=== PATIENT | female | born 1975 | race Caucasian/White ===

== ENCOUNTER → 2019-12-30 08:56 | Outpatient (BNVA) | payer OTHER, SELFPAY | PROVIDERS: Family Provider Family Medicine; PCP Family Medicine; Visit Provider Anesthesiology | DX: M51.36 Other intervertebral disc degeneration, lumbar region (principal); M51.16 Intervertebral disc disorders with radiculopathy, lumbar region; M79.652 Pain in left thigh; F17.210 Nicotine dependence, cigarettes, uncomplicated; Z79.891 Long term (current) use of opiate analgesic | CPT/HCPCS: 99214 ==

== ENCOUNTER → 2020-02-25 08:33 | Outpatient (BNVA) | payer OTHER, SELFPAY | PROVIDERS: Family Provider Family Medicine; PCP Family Medicine; Visit Provider Anesthesiology | DX: M51.16 Intervertebral disc disorders with radiculopathy, lumbar region (principal); M51.36 Other intervertebral disc degeneration, lumbar region; F17.210 Nicotine dependence, cigarettes, uncomplicated; Z71.6 Tobacco abuse counseling; Z79.891 Long term (current) use of opiate analgesic | CPT/HCPCS: 99214 ==

== ENCOUNTER → 2020-04-20 09:08 | Outpatient (BNVA) | payer OTHER, SELFPAY | PROVIDERS: Family Provider Family Medicine; PCP Family Medicine; Visit Provider Anesthesiology | DX: M51.36 Other intervertebral disc degeneration, lumbar region (principal); M51.16 Intervertebral disc disorders with radiculopathy, lumbar region; M54.9 Dorsalgia, unspecified; F17.210 Nicotine dependence, cigarettes, uncomplicated; Z79.891 Long term (current) use of opiate analgesic | CPT/HCPCS: 62323; 99212; 99213; J1040; J2001; J3490 ==

== ENCOUNTER → 2020-06-22 08:03 | Outpatient (BNVA) | payer OTHER, SELFPAY | PROVIDERS: Family Provider Family Medicine; PCP Family Medicine; Visit Provider Anesthesiology | DX: M51.16 Intervertebral disc disorders with radiculopathy, lumbar region (principal); M51.36 Other intervertebral disc degeneration, lumbar region; M54.9 Dorsalgia, unspecified; F17.210 Nicotine dependence, cigarettes, uncomplicated; Z79.891 Long term (current) use of opiate analgesic; Z71.6 Tobacco abuse counseling | CPT/HCPCS: 99214 ==

== ENCOUNTER → 2020-08-31 07:58 | Outpatient (BNVA) | payer OTHER, SELFPAY | PROVIDERS: Family Provider Family Medicine; PCP Family Medicine; Visit Provider Anesthesiology | DX: M51.16 Intervertebral disc disorders with radiculopathy, lumbar region (principal); M51.36 Other intervertebral disc degeneration, lumbar region; M54.9 Dorsalgia, unspecified; F17.210 Nicotine dependence, cigarettes, uncomplicated; Z79.891 Long term (current) use of opiate analgesic | CPT/HCPCS: 99213; 99214 ==

== ENCOUNTER → 2020-10-19 09:39 | Outpatient (BNVA) | payer OTHER, SELFPAY | PROVIDERS: Family Provider Family Medicine; PCP Family Medicine; Visit Provider Anesthesiology | DX: M51.16 Intervertebral disc disorders with radiculopathy, lumbar region (principal); M51.36 Other intervertebral disc degeneration, lumbar region; M54.9 Dorsalgia, unspecified; F17.210 Nicotine dependence, cigarettes, uncomplicated; Z79.891 Long term (current) use of opiate analgesic | CPT/HCPCS: 99212; 99214 ==

== ENCOUNTER → 2020-12-07 08:02 | Outpatient (BNVA) | payer BC, SELFPAY | PROVIDERS: Family Provider Family Medicine; PCP Family Medicine; Visit Provider Anesthesiology | DX: G89.29 Other chronic pain (principal); M51.16 Intervertebral disc disorders with radiculopathy, lumbar region; M51.36 Other intervertebral disc degeneration, lumbar region; M54.9 Dorsalgia, unspecified; F17.210 Nicotine dependence, cigarettes, uncomplicated | CPT/HCPCS: 62323; J1040; J3490 ==

== ENCOUNTER → 2020-12-29 08:05 | Outpatient (BNVA) | payer BC, SELFPAY | PROVIDERS: Family Provider Family Medicine; PCP Family Medicine; Visit Provider Anesthesiology | DX: M51.16 Intervertebral disc disorders with radiculopathy, lumbar region (principal); M54.9 Dorsalgia, unspecified; M51.36 Other intervertebral disc degeneration, lumbar region; F17.210 Nicotine dependence, cigarettes, uncomplicated; Z79.891 Long term (current) use of opiate analgesic | CPT/HCPCS: 99213 ==

== ENCOUNTER → 2021-02-23 08:46 | Outpatient (BNVA) | payer BC, SELFPAY | PROVIDERS: Family Provider Family Medicine; PCP Family Medicine; Visit Provider Anesthesiology | DX: M51.16 Intervertebral disc disorders with radiculopathy, lumbar region (principal); M51.36 Other intervertebral disc degeneration, lumbar region; M54.9 Dorsalgia, unspecified; F17.210 Nicotine dependence, cigarettes, uncomplicated; Z79.891 Long term (current) use of opiate analgesic | CPT/HCPCS: 99213 ==

== ENCOUNTER 2021-05-21 12:04 | Outpatient (CLI) | payer BC, SELFPAY ==
--- NOTE | 2021-05-21 12:12 | XRR_ITS ---
PROCEDURE INFORMATION: Exam: XR Lumbosacral Spine Exam date and time: 05/21/2021 12:12 PM Age: 45 years old Clinical indication: Low back pain; Additional info: Low back pain, please comment on presence or absence of spinal instability TECHNIQUE: Imaging protocol: XR of the lumbosacral spine. Views: 2 or 3 views. COMPARISON: MRI Lumbar Spine w/o [id number] 12/21/2018 11:05 AM FINDINGS: Bones/joints: Degenerative change. Anatomic alignment. No instability. Soft tissues: Unremarkable. XR/XR lumbar spine f/e only [id number] IMPRESSION: Degenerative change.
== END 2021-05-21 12:05 | disposition home or self-care (01) ==
PROVIDERS: PCP Family Medicine; Visit Provider Nurse Practitioner
DX: M54.5 Low back pain (principal)
CPT/HCPCS: 72120

== ENCOUNTER 2023-02-11 15:10 | Emergency (ER) | payer SELFPAY ==
[2023-02-11 15:18] VITALS: BP 162/73; PULSE 84; RESP 16; TEMP 36.5; O2SAT 98
[2023-02-11 16:59] VITALS: BP 177/88; PULSE 91; RESP 16; O2SAT 100
--- NOTE | 2023-02-11 16:59 | XRR_ITS ---
PROCEDURE INFORMATION: Exam: XR Left Ankle Exam date and time: 02/11/2023 5:15 PM Age: 47 years old Clinical indication: Pain; Left; Patient HX: Prev old injury to lt ankle TECHNIQUE: Imaging protocol: Radiologic exam of the left ankle. Views: 3 or more views. COMPARISON: No relevant prior studies available. FINDINGS: Bones/joints: Negative for acute bone abnormality. There is a bone exostosis present in the distal lateral shaft of the tibia measuring 19.8 mm x 8 mm. This is a chronic benign finding Soft tissues: Normal. XR/XR ankle LT min 3V* [id number] IMPRESSION: 1. No acute bone abnormality. 2. Benign exostosis distal lateral shaft of the tibia.
--- NOTE | 2023-02-11 17:22 | ED_ITS ---
HPI - Extremity Problem General: Chief complaint: Extremity Problem,Nontraumatic Stated complaint: Left leg, Swelling, Hurting Time Seen by Provider: 02/11/23 16:50 Source: patient Mode of arrival: ambulatory History of Present Illness: 47-year-old female presents emergency room complaining of pain in the left lateral malleolus extending proximally. Began suddenly while she was standing. Pain radiates proximally. It is tender to touch she denies chest pain or shortness of breath no history of DVTs. MD Complaint: extremity pain Onset (ago): hour(s) Location: left Quality: sharp Radiation: proximal Relieving factors: immobilization Exacerbating factors: range of motion, weight bearing and palpation Associated symptoms: Deny arthralgias, chest pain, fever(s), myalgias, rash, short of breath or other Review of Systems Const: Denies: fever(s) or chills ENMT: Denies: throat pain, ear or mastoid pain, nasal discharge or nasal congestion Card: Denies: chest pain Resp: Denies: dyspnea, productive cough or non-productive cough GI: Denies: abdominal pain, nausea, vomiting, hematemesis, coffee ground emesis, diarrhea, constipation, bloating, hematochezia or melena : Denies: flank pain, difficulty voiding, dysuria, urinary frequency or urinary urgency Skin/Breast: Denies: rash PFSH ED PFSH: Medical History Degenerative disc disease, lumbar Encounter for long-term opiate analgesic use Hypoestrogenism Lumbar disc herniation with radiculopathy Tobacco abuse disorder Surgical History H/O tubal ligation History of cholecystectomy History of hysterectomy Family History Other CAD (coronary artery disease) Cancer Social History Smoking and tobacco status: current every day smoker cigarettes Packs smoked per day: 1 Alcohol intake: never Physical Exam Const: GENERAL APPEARANCE: cooperative and comfortable ORIENTATION/CONSCIOUSNESS: Yes awake, Yes oriented to person, Yes oriented to place and Yes oriented to time HENMT: COMMON NORMALS: normocephalic, atraumatic and hearing grossly normal bilaterally HEAD & SCALP: normocephalic and atraumatic Resp: COMMON NORMALS: normal respiratory effort, No retractions, No use of accessory muscles and clear to auscultation bilaterally AUSCULTATION: clear to auscultation bilaterally Cardio: COMMON NORMALS: regular rate, regular rhythm and No murmurs present (Cardio) RATE: regular rate RHYTHM: regular rhythm GI: COMMON NORMALS: Soft to palpation and No hepatosplenomegaly present AUSCULTATION: Yes normoactive bowel sounds PALPATION: Yes Soft to palpation, No Tenderness to palpation present (GI), No Guarding due to palpation present (GI) and Yes No hepatosplenomegaly present Extremity: COMMON NORMALS: normal to inspection, capillary refill normal, no clubbing, cyanosis or edema, no calf tenderness and no pedal edema OTHER: Range of motion normal mild felt pain with palpation along the lateral malleolus especially posteriorly no significant swelling no edema no ecchymosis no deformity Homans negative no soft tissue swelling or induration Neuro: SENSORIUM/ORIENTATION: Yes oriented to person, Yes oriented to place and Yes oriented to time Skin: COMMON NORMALS: no rashes or lesions noted GENERAL SKIN EXAM: no rashes or lesions noted Course Vital Signs: Vital signs: Vital Signs Temperature 97.7 F 02/11/23 15:18 Pulse Rate 91 02/11/23 16:59 Respiratory Rate 16 02/11/23 16:59 Blood Pressure 177/88 02/11/23 16:59 Pulse Oximetry 100 02/11/23 16:59 Oxygen Delivery Me thod 02/11/23 16:59 MDM - Extremity (Nontraumatic) Medical Decision Making Exam is unremarkable. Negative Homans pain is over the posterior aspect lateral malleolus. X-ray is negative. No's significant swelling. No ecchymosis no deformity suspect soft tissue injury ligamentous or tendon. Anti-inflammatories ice as needed return if is worsening problems. Medical Records I reviewed the patient's medical records. Lab Data I reviewed the patient's lab results. Radiology Impressions Ankle X-Ray 02/11/23 16:59 IMPRESSION: 1. No acute bone abnormality. 2. Benign exostosis distal lateral shaft of the tibia. Discharge Plan Discharge Patient Disposition: Home Clinical Impression: Acute ankle pain Condition: Stable Prescriptions: New diclofenac sodium 75 mg tablet,delayed release (DR/EC) 75 mg PO Q12H PRN (Reason: pain) Qty: 20 0RF No Action methylprednisolone acetate [Depo-Medrol] 80 mg/mL suspension 80 mg IM ONCE Qty: 1 0RF estradiol 1 mg tablet 1 mg PO DAILY 21 Days Qty: 90 1RF azithromycin 250 mg tablet See Rx Instructions PO .COMPLEX Qty: 6 0RF Rx Instructions: take 500 mg today (day 1), then 250 mg for 4 days (days 2-5) PO alprazolam 0.5 mg tablet 0.5 mg PO BID PRN (Reason: anxiety) Qty: 60 4RF oxycodone 10 mg tablet 10 mg PO DAILY PRN (Reason: pain) 15 Days Qty: 15 0RF Rx Instructions: Intended #15 as no appt made Discharge Orders: Discharge ED (Routine); Ordered 02/11/23 Ordered By: Taj Rodas Referrals: Nathaniel Howell MD [Primary Care Provider] - Discharge Diet: Usual diet Discharge Activity: Increase activity as tolerated Patient Instructions: Opioid Safety, Pain Management Activity Restrictions/Additional Instructions: You were seen today for ankle pain. X-ray of ankle was unremarkable. Suspect muscle or ligament strain. There is no evidence of blood clot on exam. Recommend diclofenac 1 every 12 hours as needed. Coding Level of Care Code ED Learning And Development Intern for Mika Arizmendi
[2023-02-11] MEDS: ketorolac 30 mg/mL INJ 60 MG IM (18:10)
== END 2023-02-11 18:25 | disposition home or self-care (01) ==
PROVIDERS: Emergency Provider Family Medicine; PCP Family Medicine
DX: M25.572 Pain in left ankle and joints of left foot (principal); M89.9 Disorder of bone, unspecified; F17.210 Nicotine dependence, cigarettes, uncomplicated
CPT/HCPCS: 73610; 96372; 99284; J1885

== ENCOUNTER 2023-02-14 17:24 | Emergency (ER) | payer SELFPAY ==
[2023-02-14 17:41] VITALS: BMI 24.0
--- NOTE | 2023-02-14 17:52 | W.ED.DENTAL ---
HPI - Dental/Oral General: Chief complaint: Dental/Oral Stated complaint: abcess tooth Time Seen by Provider: 02/14/23 17:52 History of Present Illness: 47-year-old female comes in today for complaints of right upper jaw pain and facial swelling. Patient reports waking this morning with a swelling and discomfort. Patient has a premolar that is decayed and has been infected before in the past. Patient appears nontoxic. Patient appears in no acute distress. Associated symptoms: Denies fever(s) Review of Systems Const: Denies: fever(s) ENMT: Reports: dental pain; Denies: throat pain Resp: Denies: dyspnea GI: Denies: abdominal pain : Denies: difficulty voiding Skin/Breast: Denies: rash Neuro: Denies: headache(s) PFSH ED PFSH: Medical History Degenerative disc disease, lumbar Encounter for long-term opiate analgesic use Hypoestrogenism Lumbar disc herniation with radiculopathy Tobacco abuse disorder Surgical History H/O tubal ligation History of cholecystectomy History of hysterectomy Family History Other CAD (coronary artery disease) Cancer Social History Smoking and tobacco status: current every day smoker cigarettes Packs smoked per day: 1 Alcohol intake: never Physical Exam Const: COMMON NORMALS: alert HENMT: FACE & SINUS: edema (Right facial cheek, no redness) TEETH & GINGIVA: Yes caries (Decayed upper right premolar with surrounding tissue redness and swelling) and Yes fair dentition THROAT: posterior oropharynx normal Neck/C-Spine: COMMON NORMALS: full ROM Resp: COMMON NORMALS: normal respiratory effort Cardio: COMMON NORMALS: regular rate and regular rhythm RATE: regular rate RHYTHM: regular rhythm Back/Pelvis: COMMON NORMALS: thoracic and lumbar spine normal to inspection Extremity: COMMON NORMALS: no pedal edema Neuro: SENSORIUM/ORIENTATION: Yes alert Skin: COMMON NORMALS: turgor normal GENERAL SKIN EXAM: turgor normal MDM - Dental/Oral Medical Decision Making 47-year-old female comes in today with complaints of right upper dental pain. On exam patient has right facial swelling with no redness. Examination of the teeth noted several dental caries, some erythema and gingival swelling to a area of the right premolar. Posterior pharynx is normal. Lungs are clear to auscultation. Pupils are equal and reactive. Differential diagnosis includes not limited to dental pain, dental abscess, dental caries. No signs of severe injury or illness is noted. Patient be treated for a dental abscess with antibiotics and pain medicine. Patient was recommended to follow-up with dentist for definitive care. Discharge Plan Discharge Patient Disposition: Home Clinical Impression: Dental abscess Condition: Stable Prescriptions: New hydrocodone-acetaminophen 5-325 mg tablet 1 tab PO Q6H PRN (Reason: pain (scale score 7-10)) Qty: 7 0RF amoxicillin-pot clavulanate 875-125 mg tablet 1 tab PO BID Qty: 14 0RF No Action methylprednisolone acetate [Depo-Medrol] 80 mg/mL suspension 80 mg IM ONCE Qty: 1 0RF estradiol 1 mg tablet 1 mg PO DAILY 21 Days Qty: 90 1RF azithromycin 250 mg tablet See Rx Instructions PO .COMPLEX Qty: 6 0RF Rx Instructions: take 500 mg today (day 1), then 250 mg for 4 days (days 2-5) PO alprazolam 0.5 mg tablet 0.5 mg PO BID PRN (Reason: anxiety) Qty: 60 4RF oxycodone 10 mg tablet 10 mg PO DAILY PRN (Reason: pain) 15 Days Qty: 15 0RF Rx Instructions: Intended #15 as no appt made diclofenac sodium 75 mg tablet,delayed release (DR/EC) 75 mg PO Q12H PRN (Reason: pain) Qty: 20 0RF Discharge Orders: Discharge ED (Routine); Ordered 02/14/23 Ordered By: Emery Jj Referrals: Nathaniel Howell MD [Primary Care Provider] - Discharge Diet: Usual diet Discharge Activity: Increase activity as tolerated Patient Instructions: Dental Abscess (ED), Opioid Safety Activity Restrictions/Additional Instructions: Drink plenty of water with medication. Use antibiotic 1 tablet twice a day for the next 7 days. Use acetaminophen and ibuprofen to control pain. Use ice and heat for further pain relief. Use hydrocodone for severe pain. Follow-up with primary care for further instruction. Return to ED for new concerns. Coding Level of Care Code ED Oxygen Tank Filler for Mika Arizmendi
[2023-02-14] MEDS: amoxicillin-clav 875-125 mg Tablet 1 TAB PO (18:21)
[2023-02-14] MEDS: ketorolac 30 mg/mL INJ IM (18:21)
[2023-02-14] MEDS: HYDROcodone-acetaminophen 7.5-325 mg Tablet 1 TAB PO (18:21)
[2023-02-14] MEDS: ondansetron 4 MG Tablet PO (18:21)
== END 2023-02-14 18:26 | disposition home or self-care (01) ==
PROVIDERS: Emergency Provider Nurse Practitioner Family; PCP Family Medicine
DX: K04.7 Periapical abscess without sinus (principal); F17.210 Nicotine dependence, cigarettes, uncomplicated
CPT/HCPCS: 96372; 99284; J1885; Q0162

== ENCOUNTER 2023-10-08 14:19 | Emergency (ER) | payer BC, MEDICAID, SELFPAY ==
[2023-10-08 14:20] VITALS: BP 129/66; PULSE 94; RESP 17; TEMP 36.8; O2SAT 98; BMI 29.8
--- NOTE | 2023-10-08 15:28 | W.ED.SKABFB ---
HPI - Skin/Abscess/Foreign Bdy General: Chief complaint: Skin/Abscess/Foreign Body Stated complaint: spider bite Time Seen by Provider: 10/08/23 15:24 Source: patient Mode of arrival: ambulatory Limitations: no limitations History of Present Illness: 48-year-old female states that she did notice an abscess to her left buttocks 4 to 5 days ago states she had some increased swelling erythema and pain. Rates pain a 5 out of 10 she denies any fevers denies any worsening proving factors Associated symptoms: Deny chills, fever(s), nausea or vomiting Review of Systems Const: Denies: fever(s), chills, body aches or change in appetite ENMT: Denies: throat pain or dental pain Card: Denies: chest pain Resp: Denies: dyspnea GI: Denies: abdominal pain, nausea, vomiting or diarrhea : Denies: dysuria Musc: Denies: neck pain or back pain Skin/Breast: Denies: rash Neuro: Denies: headache(s) PFSH ED PFSH: Medical History Degenerative disc disease, lumbar Encounter for long-term opiate analgesic use Hypoestrogenism Lumbar disc herniation with radiculopathy Tobacco abuse disorder Surgical History H/O tubal ligation History of cholecystectomy History of hysterectomy Family History Other CAD (coronary artery disease) Cancer Social History Smoking and tobacco/nicotine status: current every day tobacco/nicotine user cigarettes Packs smoked per day: 1 Alcohol intake: never Substance/Drug Use: never Physical Exam Const: COMMON NORMALS: no acute distress and patient oriented x3 HENMT: COMMON NORMALS: normocephalic and atraumatic HEAD & SCALP: normocephalic and atraumatic Eye: COMMON NORMALS: conjunctivae normal CONJUNCTIVA: Yes conjunctivae normal Chest: COMMONS NORMALS: normal inspection of the chest Resp: COMMON NORMALS: normal respiratory effort GI: INSPECTION: Yes normal to inspection Back/Pelvis: OTHER: Abscess noted to left buttocks with surrounding erythema Extremity: COMMON NORMALS: normal to inspection Neuro: COMMON NORMALS: patient oriented x3 Psych: COMMON NORMALS: mental status grossly normal Skin: COMMON NORMALS: no rashes or lesions noted GENERAL SKIN EXAM: no rashes or lesions noted Procedures Abscess I/D Site: other (buttocks) Side (if applicable): left Local Anesthetic: lidocaine 1% Amount of anesthesia used (mL): 10 Technique: incised with #11 blade Packing used?: none Course Vital Signs: Vital signs: Vital Signs Temperature 98.3 F 10/08/23 14:20 Pulse Rate 94 10/08/23 14:20 Respiratory Rate 17 10/08/23 14:20 Blood Pressure 129/66 10/08/23 14:20 Pulse Oximetry 98 10/08/23 14:20 Oxygen Delivery Me thod Room Air 10/08/23 14:20 MDM - Skin/Abscess/Foreign Bdy Medicial Decision Making Patient presents with abscess to left buttocks abscess was incised and drained we will place on Bactrim patient stable for discharge she is to follow-up with PCP and return if worsening. Medical Records I reviewed the patient's medical records. No radiology studies performed this visit Discharge Plan Discharge Patient Disposition: Home Clinical Impression: Abscess of skin or subcutaneous tissue Condition: Stable Prescriptions: New Bactrim DS 800-160 mg tablet 1 tab PO BID 10 Days Qty: 20 0RF Naprosyn 500 mg tablet 500 mg PO BID PRN (Reason: pain) Qty: 20 0RF No Action methylprednisolone acetate [Depo-Medrol] 80 mg/mL suspension 80 mg IM ONCE Qty: 1 0RF estradiol 1 mg tablet 1 mg PO DAILY 21 Days Qty: 90 1RF azithromycin 250 mg tablet See Rx Instructions PO .COMPLEX Qty: 6 0RF Rx Instructions: take 500 mg today (day 1), then 250 mg for 4 days (days 2-5) PO alprazolam 0.5 mg tablet 0.5 mg PO BID PRN (Reason: anxiety) Qty: 60 4RF oxycodone 10 mg tablet 10 mg PO DAILY PRN (Reason: pain) 15 Days Qty: 15 0RF Rx Instructions: Intended #15 as no appt made diclofenac sodium 75 mg tablet,delayed release (DR/EC) 75 mg PO Q12H PRN (Reason: pain) Qty: 20 0RF hydrocodone-acetaminophen 5-325 mg tablet 1 tab PO Q6H PRN (Reason: pain (scale score 7-10)) Qty: 7 0RF amoxicillin-pot clavulanate 875-125 mg tablet 1 tab PO BID Qty: 14 0RF Discharge Orders: Discharge ED (Routine); Ordered 10/08/23 Ordered By: Dave Morillo Referrals: Nathaniel Howell MD [Primary Care Provider] - 1-3 days Discharge Diet: Advance as tolerated Discharge Activity: Resume usual activity Patient Instructions: Abscess (ED) Coding Level of Care Code ED Agricultural Plow Operator for Mika Arizmendi
[2023-10-08] MEDS: sulfamethoxazole-trimeth DS 160-800 mg Tablet 1 TAB PO (15:44)
[2023-10-08] MEDS: HYDROcodone-acetaminophen 5-325 mg Tablet 1 TAB PO (15:44)
== END 2023-10-08 15:51 | disposition home or self-care (01) ==
PROVIDERS: Emergency Provider Emergency Medicine; PCP Family Medicine
DX: L02.31 Cutaneous abscess of buttock (principal); F17.210 Nicotine dependence, cigarettes, uncomplicated
CPT/HCPCS: 10060; 99283

== ENCOUNTER 2024-04-02 00:46 | Emergency (ER) | payer BC, MEDICAID, SELFPAY ==
[2024-04-02 00:49] VITALS: BP 206/100; PULSE 82; RESP 18; TEMP 36.8; O2SAT 99; BMI 29.2
[2024-04-02 01:05] LABS: Basophils # 0.1 10^3/uL (0.0-0.1); Basophils % 0.7 %; Eosinophils # 0.2 10^3/uL (0.0-0.8); Eosinophils % 1.9 %; Hematocrit 43.2 % (36-47); Lymphocytes # 3.5 10^3/uL (0.8-4.8); Lymphocytes % 35.6 %; Mean Corpuscular HGB Conc 33.6 g/dL (30-55); Mean Corpuscular Hemoglobin 30.5 pg (27-33); Mean Corpuscular Volume 90.9 fl (85-98); Mean Platelet Volume 10.5 fL (7.4-10.4); Monocytes # 0.8 10^3/uL (0.2-0.9); Monocytes % 8.1 %; Neutrophils # 5.28 10^3/uL (1.8-7.7); Neutrophils % 53.5 %; Nucleated Red Blood Cells % 0 %; Platelet Count 237 10^3/cmm (157-399); Red Blood Count 4.75 10^6/uL (3.85-5.65); Red Cell Distribution Width 11.7 % (12.1-15.1); White Blood Count 9.88 10^3/uL (3.29-11.43)
--- NOTE | 2024-04-02 01:18 | ED_ITS ---
HPI - Abdominal Pain 2 General: Chief Complaint: Abdominal Pain Stated Complaint: Abd Pain Time Seen by Provider: 04/02/24 00:50 History of Present Illness: Patient presents to the snf with deputy at bedside with complaints of right lower quadrant pain that began 1 hour prior to arrival. Patient stated become dull and achy at first and then becomes sharp and stabbing. Patient is never had pain like this before. Patient denies any nausea vomiting diarrhea coughs colds fevers chills Review of Systems 2 General: Reports: 10 or more systems reviewed and unremarkable except in HPI and below PFSH ED 2 PFSH: Medical History Hypoestrogenism Encounter for long-term opiate analgesic use Tobacco abuse disorder Lumbar disc herniation with radiculopathy Degenerative disc disease, lumbar Surgical History History of hysterectomy History of cholecystectomy H/O tubal ligation Family History Other CAD (coronary artery disease) Cancer Social History Smoking and tobacco/nicotine status: current every day tobacco/nicotine user cigarettes Packs smoked per day: 1 Alcohol intake: never Substance/Drug Use: never Physical Exam 2 Const: COMMON NORMALS: no acute distress, average body habitus, patient oriented x3, no limitations, healthy appearing, alert and well nourished HENMT: COMMON NORMALS: normocephalic, atraumatic, hearing grossly normal bilaterally, external ears normal, Normal external nose present, moist oral mucous membranes and oropharynx normal HEAD & SCALP: normocephalic and atraumatic NOSE: Normal external nose present EXTERNAL EAR: Yes external ears normal Neck/C-Spine: COMMON NORMALS: no JVD Chest: COMMONS NORMALS: normal inspection of the chest and normal palpation of entire chest wall Resp: COMMON NORMALS: normal respiratory effort, No retractions, No use of accessory muscles and clear to auscultation bilaterally AUSCULTATION: clear to auscultation bilaterally Cardio: COMMON NORMALS: no JVD, regular rate, regular rhythm, S1 normal heart sound present, S2 normal heart sound present, No gallops present (Cardio), No clicks present (Cardio), No murmurs present (Cardio) and No rub (Cardio) R ATE: regular rate RHYTHM: regular rhythm HEART SOUNDS: S1 normal heart sound present and S2 normal heart sound present GI: COMMON NORMALS: Normal to inspection, nondistended, normoactive bowel sounds present, Soft to palpation, No hepatosplenomegaly present and no masses; negative for non-tender (Mildly tender to palpate right lower quadrant) P ALPATION: Yes Soft to palpation and Yes No hepatosplenomegaly present Neuro: COMMON NORMALS: patient oriented x3 SENSORIUM/ORIENTATION: Yes alert Course 2 Vital Signs: Vital signs: Vital Signs Temperature 98.2 F 04/02/24 00:49 Pulse Rate 82 04/02/24 00:49 Respiratory Rate 18 04/02/24 00:49 Blood Pressure 206/100 04/02/24 00:49 Pulse Oximetry 99 04/02/24 00:49 Oxygen Delivery Me thod Room Air 04/02/24 00:49 MDM - Abdominal Pain Medical Decision Making Your lab work was unremarkable. This included CBC CMP urinalysis and lipase. Will be discharged back to the snf to follow-up with the snf physician within the next 7 days. Differential Diagnosis Likely abdominal pain; Unlikely calculus of kidney, constipation, diverticulitis, endometriosis, gastroenteritis, pancreatitis or small bowel obstruction Medical Records I reviewed the patient's medical records. Lab Data I reviewed the patient's lab results. 04/02/24 01:00 04/02/24 01:00 Labs/Radiology: Laboratory Results WBC 9.88 10^3/uL (3.29-11.43) 04/02/24 01:00 RBC 4.75 10^6/uL (3.85-5.65) 04/02/24 01:00 Hgb 14.50 g/dL (11.27-16.99) 04/02/24 01:00 Hct 43.2 % (36-47) 04/02/24 01:00 MCV 90.9 fl (85-98) 04/02/24 01:00 MCH 30.5 pg (27-33) 04/02/24 01:00 MCHC 33.6 g/dL (30-55) 04/02/24 01:00 RDW 11.7 % (12.1-15.1) L 04/02/24 01:00 Plt Count 237 10^3/cmm (157-399) 04/02/24 01:00 MPV 10.5 fL (7.4-10.4) H 04/02/24 01:00 Neut % (Auto) 53.5 % 04/02/24 01:00 Lymph % (Auto) 35.6 % 04/02/24 01:00 [place] % (Auto) 8.1 % 04/02/24 01:00 Eos % (Auto) 1.9 % 04/02/24 01:00 Baso % (Auto) 0.7 % 04/02/24 01:00 Neut # (Auto) 5.28 10^3/uL (1.8-7.7) 04/02/24 01:00 Lymph # (Auto) 3.5 10^3/uL (0.8-4.8) 04/02/24 01:00 [place] # (Auto) 0.8 10^3/uL (0.2-0.9) 04/02/24 01:00 Eos # (Auto) 0.2 10^3/uL (0.0-0.8) 04/02/24 01:00 Baso # (Auto) 0.1 10^3/uL (0.0-0.1) 04/02/24 01:00 Nucleated RBC % (auto) 0 % 04/02/24 01:00 Nucleated RBCs # 0.0 /100WBC 04/02/24 01:00 Sodium 142 mmol/L (136-145) 04/02/24 01:00 Potassium 4.7 mmol/L (3.5-5.1) 04/02/24 01:00 Chloride 105 mmol/L (98-107) 04/02/24 01:00 Carbon Dioxide 29 mmol/L (22-29) 04/02/24 01:00 Anion Gap 12.7 (5-19) 04/02/24 01:00 BUN 15 mg/dL (6-20) 04/02/24 01:00 Creatinine 0.7 mg/dL (0.5-0.9) 04/02/24 01:00 GFR Calculation 89.3 mL/min (90-130) L 04/02/24 01:00 Glucose 84 mg/dL (65-115) 04/02/24 01:00 Calculated Osmolality 294 mOsm/kg (285-295) 04/02/24 01:00 Calcium 9.6 mg/dL (8.5-10.5) 04/02/24 01:00 Magnesium 2.4 mg/dL (1.7-2.3) H 04/02/24 01:00 Total Bilirubin 0.3 mg/dL (0.15-1.2) 04/02/24 01:00 AST 14 U/L (0-32) 04/02/24 01:00 ALT 14 U/L (0-33) 04/02/24 01:00 Alkaline Phosphatase 67 U/L (35-105) 04/02/24 01:00 Total Protein 6.9 g/dL (6.6-8.7) 04/02/24 01:00 Albumin 4.2 g/dL (3.5-5.2) 04/02/24 01:00 Globulin 2.7 g/dL (1.3-4.6) 04/02/24 01:00 Lipase 24 U/L (13-60) 04/02/24 01:00 Urine Color Yellow (Yellow) 04/02/24 01:08 Urine Appearance Clear (CLEAR) 04/02/24 01:08 Urine pH 6.5 (5-7) 04/02/24 01:08 Ur Specific [place] 1.015 (1.005-1.030) 04/02/24 01:08 Urine Protein Neg (Negative) 04/02/24 01:08 Urine Glucose (UA) Norm (Normal) 04/02/24 01:08 Urine Ketones Negative (Negative) 04/02/24 01:08 Urine Blood Neg (Negative) 04/02/24 01:08 Urine Nitrate Negative (Negative) 04/02/24 01:08 Urine Bilirubin Neg (Negative) 04/02/24 01:08 Urine Urobilinogen Neg mg/dL (Negative) 04/02/24 01:08 Ur Leukocyte Esterase Negative (Negative) 04/02/24 01:08 All radiology interpretation(s) finalized by discharge Discharge Plan Discharge Patient Disposition: Home Clinical Impression: Abdominal pain Qualifiers: Abdominal location: right lower quadrant Qualified Code(s): R10.31 - Right lower quadrant pain Condition: Stable Prescriptions: No Action methylprednisolone acetate [Depo-Medrol] 80 mg/mL suspension 80 mg IM ONCE Qty: 1 0RF estradiol 1 mg tablet 1 mg PO DAILY 21 Days Qty: 90 1RF azithromycin 250 mg tablet See Rx Instructions PO .COMPLEX Qty: 6 0RF Rx Instructions: take 500 mg today (day 1), then 250 mg for 4 days (days 2-5) PO alprazolam 0.5 mg tablet 0.5 mg PO BID PRN (Reason: anxiety) Qty: 60 4RF oxycodone 10 mg tablet 10 mg PO DAILY PRN (Reason: pain) 15 Days Qty: 15 0RF Rx Instructions: Intended #15 as no appt made diclofenac sodium 75 mg tablet,delayed release (DR/EC) 75 mg PO Q12H PRN (Reason: pain) Qty: 20 0RF hydrocodone-acetaminophen 5-325 mg tablet 1 tab PO Q6H PRN (Reason: pain (scale score 7-10)) Qty: 7 0RF amoxicillin-pot clavulanate 875-125 mg tablet 1 tab PO BID Qty: 14 0RF Naprosyn 500 mg tablet 500 mg PO BID PRN (Reason: pain) Qty: 20 0RF Discharge Orders: Discharge ED (Routine); Ordered 04/02/24 Ordered By: William Jordan Referrals: Nathaniel Howell MD [Primary Care Provider] - 1 week Patient Instructions: Abdominal Pain (ED) Activity Restrictions/Additional Instructions: Your lab work was all negative. This did not show any acute cause of your abdominal pain. Please follow-up with your physician within the next 7 days for further evaluation and treatment as needed. Coding Level of Care Code ED Welfare Centre Manager for Mika Arizmendi
[2024-04-02 01:20] LABS: Alanine Aminotransferase 14 U/L (0-33); Albumin Level 4.2 g/dL (3.5-5.2); Alkaline Phosphatase 67 U/L (35-105); Anion Gap 12.7 (5-19); Aspartate Amino Transferase 14 U/L (0-32); Blood Urea Nitrogen 15 mg/dL (6-20); Calcium 9.6 mg/dL (8.5-10.5); Carbon Dioxide 29 mmol/L (22-29); Chloride 105 mmol/L (98-107); Creatinine Clr Calc Pharmacy 98.7809; Globulin 2.7 g/dL (1.3-4.6); Glomerular Filtration Rate 89.3 mL/min (90-130); Glucose 84 mg/dL (65-115); Lipase 24 U/L (13-60); Magnesium 2.4 mg/dL (1.7-2.3); Osmolality Calculated 294 mOsm/kg (285-295); Potassium 4.7 mmol/L (3.5-5.1); Sodium 142 mmol/L (136-145); Total Bilirubin 0.3 mg/dL (0.15-1.2); Total Protein 6.9 g/dL (6.6-8.7)
[2024-04-02] MEDS: ketorolac 30 mg/mL INJ IVP (01:39)
[2024-04-02] MEDS: hyDRALAzine 20 mg/mL INJ 1 mL IVP (01:41)
[2024-04-02 01:51] LABS: Add Urine Microscopic? NO; Charge for UA Resulting for Rev
[2024-04-02 01:55] LABS: Bilirubin Urine Neg (Negative); Blood Urine Neg (Negative); Glucose Urine UA Norm (Normal); Ketones Urine Negative (Negative); Leukocyte Esterase Urine Negative (Negative); Nitrate Urine Negative (Negative); Protein Urine Neg (Negative); Specific Gravity, Urine 1.015 (1.005-1.030); Urine Appearance Clear (CLEAR); Urine Color Yellow (Yellow); Urobilinogen Urine Neg (Negative); pH Urine 6.5 (5-7)
[2024-04-02 02:11] VITALS: BP 142/74; PULSE 86; RESP 14; O2SAT 97
== END 2024-04-02 02:22 | disposition home or self-care (01) ==
PROVIDERS: Emergency Provider Emergency Medicine; PCP Family Medicine
DX: R10.31 Right lower quadrant pain (principal); F17.210 Nicotine dependence, cigarettes, uncomplicated
CPT/HCPCS: 80053; 81003; 83690; 83735; 85025; 96374; 96375; 99284; J0360; J1885

== ENCOUNTER 2024-04-17 15:58 | Inpatient (IN) | payer BC, MEDICAID, SELFPAY ==
[2024-04-17 16:11] VITALS: BP 133/61; PULSE 95; RESP 17; TEMP 36.7; O2SAT 96; BMI 29.2
[2024-04-17 16:48] LABS: Basophils # 0.1 10^3/uL (0.0-0.1); Basophils % 0.5 %; Eosinophils # 0.1 10^3/uL (0.0-0.8); Hematocrit 38.9 % (36-47); Lymphocytes # 2.2 10^3/uL (0.8-4.8); Lymphocytes % 22.7 %; Mean Corpuscular HGB Conc 33.7 g/dL (30-55); Mean Corpuscular Hemoglobin 30.3 pg (27-33); Mean Platelet Volume 10.6 fL (7.4-10.4); Monocytes % 10.4 %; Neutrophils # 6.31 10^3/uL (1.8-7.7); Neutrophils % 65.2 %; Nucleated Red Blood Cells % 0 %; Platelet Count 214 10^3/cmm (157-399); Red Blood Count 4.32 10^6/uL (3.85-5.65); White Blood Count 9.69 10^3/uL (3.29-11.43)
--- NOTE | 2024-04-17 17:02 | USR_ITS ---
PROCEDURE INFORMATION: Exam: US Duplex Right Lower Extremity Veins, Limited Exam date and time: 04/17/2024 5:20 PM Age: 48 years old Clinical indication: Pain; Leg, lower; Right; Additional info: Right-sided calf pain and swelling. Concern for dvt TECHNIQUE: Imaging protocol: Real-time duplex ultrasound of the right extremity with 2-D mackenzie scale, color Doppler flow and spectral waveform analysis including responses to compression and other maneuvers (when performed) with image documentation. Limited exam was focused on the right lower extremity veins. COMPARISON: CT kidney stone [id number] 10/26/2017 9:17 PM FINDINGS: Right deep veins: Unremarkable. The common femoral, femoral, proximal profunda femoral, popliteal, posterior tibial and peroneal veins are patent without thrombus. Normal Doppler waveforms. Normal compressibility and/or augmentation response. Superficial veins: Greater saphenous vein at the saphenofemoral junction is patent without thrombus. Soft tissues: Unremarkable. US/[place] [id number] IMPRESSION: No sonographic evidence of deep vein thrombosis.
[2024-04-17 17:08] LABS: Alanine Aminotransferase 62 U/L (0-33); Albumin Level 4.1 g/dL (3.5-5.2); Alkaline Phosphatase 69 U/L (35-105); Anion Gap 15.7 (5-19); Aspartate Amino Transferase 108 U/L (0-32); Blood Urea Nitrogen 19 mg/dL (6-20); C Reactive Protein 10.5 mg/L (0.0-4.9); Calcium 9.3 mg/dL (8.5-10.5); Carbon Dioxide 23 mmol/L (22-29); Chloride 100 mmol/L (98-107); Creatinine Clr Calc Pharmacy 86.4333; Globulin 2.6 g/dL (1.3-4.6); Glomerular Filtration Rate 76.6 mL/min (90-130); Glucose 97 mg/dL (65-115); Osmolality Calculated 282 mOsm/kg (285-295); Potassium 3.7 mmol/L (3.5-5.1); Sodium 135 mmol/L (136-145); Total Protein 6.7 g/dL (6.6-8.7)
--- NOTE | 2024-04-17 17:08 | W.ED.EXTPRO ---
HPI - Extremity Problem General: Chief complaint: Extremity Problem,Nontraumatic Stated complaint: leg pain/headache Time Seen by Provider: 04/17/24 16:47 History of Present Illness: Patient says she woke up in her tent today with right leg pain. She complains of pain from her hip all the way down to her foot. She feels like there is swelling in her calf and in her leg. This does not seem very apparent to me. No chest pain. No shortness of breath. No abdominal pain. Apparently was very hot in her tent and she had passed out for quite some time. Review of Systems Narrative: Constitutional symptoms: Negative except as documented in HPI. Skin symptoms: Negative except as documented in HPI. Eye symptoms: Negative except as documented in HPI. ENMT symptoms: Negative except as documented in HPI. Respiratory symptoms: Negative except as documented in HPI. Cardiovascular symptoms: Negative except as documented in HPI. Gastrointestinal symptoms: Negative except as documented in HPI. Genitourinary symptoms: Negative except as documented in HPI. Musculoskeletal symptoms: Negative except as documented in HPI. Neurologic symptoms: Negative except as documented in HPI. Psychiatric symptoms: Negative except as documented in HPI. Endocrine symptoms: Negative except as documented in HPI. [facility] ED PFSH: Medical History Hypoestrogenism Encounter for long-term opiate analgesic use Tobacco abuse disorder Lumbar disc herniation with radiculopathy Degenerative disc disease, lumbar Surgical History History of hysterectomy History of cholecystectomy H/O tubal ligation Family History Other CAD (coronary artery disease) Cancer Social History Smoking and tobacco/nicotine status: current every day tobacco/nicotine user cigarettes Packs smoked per day: 1 Alcohol intake: never Substance/Drug Use: never Physical Exam Narrative: EXAM NARRATIVE: General: Alert, no acute distress. Skin: warm and dry Head: Normocephalic Neck: Trachea midline Eye: Extraocular movements are intact. Ears, nose, mouth and throat: Oral mucosa moist Respiratory: Respirations are non-labored Musculoskeletal: Normal ROM Neurological: Alert and oriented, No focal neurological deficit observed. Psychiatric: Cooperative Course Vital Signs: Vital signs: Vital Signs Temperature 98.1 F 04/17/24 16:11 Pulse Rate 95 04/17/24 16:11 Respiratory Rate 17 04/17/24 16:11 Blood Pressure 133/61 04/17/24 16:11 Pulse Oximetry 96 04/17/24 16:11 Oxygen Delivery Me thod Room Air 04/17/24 16:11 MDM - Extremity (Nontraumatic) Medical Decision Making Medical decision making: Differential diagnosis including but not limited to and based on the above HPI, review of systems and physical exam: Concern for DVT so ultrasound was ordered. Basic lab work and CK were ordered to rule out renal failure and rhabdomyolysis. Orders placed to evaluate differential diagnosis based on the above differential, HPI and physical exam Lab Review: Laboratory results were reviewed and interpreted by myself the emergency room physician. White count is 9.7. BUN and creatinine are 19 and 0.8. CK is significantly elevated at 3800. Ultrasound of the right lower extremity: No evidence of DVT. I reviewed the patient's medical record. Reexamination: Patient remained stable. No increased work of breathing. No change in her mentation. No focal motor deficits. Consultation: I spoke with Dr. Cueto who is on-call for the hospitalist who agrees to observe the patient overnight with continued hydration and repeat labs in the morning. Social complications: The patient is homeless and lives in a tent with her . Assessment and plan: Rhabdomyolysis Dehydration -I discussed the patient with the hospitalist on-call who is admitting the patient to observation. - Discussed findings and plan with patient. Answered any questions. - All laboratory values were reviewed and interpreted personally by myself, the ER physician - All imaging was reviewed and interpreted personally by myself, the ER physician. - Evaluation and treatment of this problem were appropriate in the emergency setting Lab Data 04/17/24 16:41 04/17/24 16:41 Laboratory Results WBC 9.69 10^3/uL (3.29-11.43) 04/17/24 16:41 RBC 4.32 10^6/uL (3.85-5.65) 04/17/24 16:41 Hgb 13.10 g/dL (11.27-16.99) 04/17/24 16:41 Hct 38.9 % (36-47) 04/17/24 16:41 MCV 90.0 fl (85-98) 04/17/24 16:41 MCH 30.3 pg (27-33) 04/17/24 16:41 MCHC 33.7 g/dL (30-55) 04/17/24 16:41 RDW 12.0 % (12.1-15.1) L 04/17/24 16:41 Plt Count 214 10^3/cmm (157-399) 04/17/24 16:41 MPV 10.6 fL (7.4-10.4) H 04/17/24 16:41 Neut % (Auto) 65.2 % 04/17/24 16:41 Lymph % (Auto) 22.7 % 04/17/24 16:41 [place] % (Auto) 10.4 % 04/17/24 16:41 Eos % (Auto) 1.0 % 04/17/24 16:41 Baso % (Auto) 0.5 % 04/17/24 16:41 Neut # (Auto) 6.31 10^3/uL (1.8-7.7) 04/17/24 16:41 Lymph # (Auto) 2.2 10^3/uL (0.8-4.8) 04/17/24 16:41 [place] # (Auto) 1.0 10^3/uL (0.2-0.9) H 04/17/24 16:41 Eos # (Auto) 0.1 10^3/uL (0.0-0.8) 04/17/24 16:41 Baso # (Auto) 0.1 10^3/uL (0.0-0.1) 04/17/24 16:41 Nucleated RBC % (auto) 0 % 04/17/24 16:41 Nucleated RBCs # 0.0 /100WBC 04/17/24 16:41 Sodium 135 mmol/L (136-145) L 04/17/24 16:41 Potassium 3.7 mmol/L (3.5-5.1) 04/17/24 16:41 Chloride 100 mmol/L (98-107) 04/17/24 16:41 Carbon Dioxide 23 mmol/L (22-29) 04/17/24 16:41 Anion Gap 15.7 (5-19) 04/17/24 16:41 BUN 19 mg/dL (6-20) 04/17/24 16:41 Creatinine 0.8 mg/dL (0.5-0.9) 04/17/24 16:41 GFR Calculation 76.6 mL/min (90-130) L 04/17/24 16:41 Glucose 97 mg/dL (65-115) 04/17/24 16:41 Calculated Osmolality 282 mOsm/kg (285-295) L 04/17/24 16:41 Calcium 9.3 mg/dL (8.5-10.5) 04/17/24 16:41 Total Bilirubin 1.0 mg/dL (0.15-1.2) 04/17/24 16:41 AST 108 U/L (0-32) H 04/17/24 16:41 ALT 62 U/L (0-33) H 04/17/24 16:41 Alkaline Phosphatase 69 U/L (35-105) 04/17/24 16:41 Creatine Kinase 3848 U/L (26-192) H* 04/17/24 16:41 C-Reactive Protein 10.5 mg/L (0.0-4.9) H 04/17/24 16:41 Total Protein 6.7 g/dL (6.6-8.7) 04/17/24 16:41 Albumin 4.1 g/dL (3.5-5.2) 04/17/24 16:41 Globulin 2.6 g/dL (1.3-4.6) 04/17/24 16:41 Urine Color Dark yellow (Yellow) 04/17/24 16:52 Urine Appearance Clear (CLEAR) 04/17/24 16:52 Urine pH 6 (5-7) 04/17/24 16:52 Ur Specific [place] 1.025 (1.005-1.030) 04/17/24 16:52 Urine Protein Trace (Negative) 04/17/24 16:52 Urine Glucose (UA) Norm (Normal) 04/17/24 16:52 Urine Ketones 3+ (Negative) H 04/17/24 16:52 Urine Blood Neg (Negative) 04/17/24 16:52 Urine Nitrate Negative (Negative) 04/17/24 16:52 Urine Bilirubin 1+ (Negative) H 04/17/24 16:52 Urine Urobilinogen 1 mg/dL (Negative) H 04/17/24 16:52 Ur Leukocyte Esterase Trace (Negative) H 04/17/24 16:52 Urine RBC None /hpf (0-2) 04/17/24 16:52 Urine WBC 0-4 /hpf (0-5) H 04/17/24 16:52 Ur Squamous Epith Cells 0-4 /hpf (0-5) H 04/17/24 16:52 Calcium Oxalate Crystal 5-10 /hpf H 04/17/24 16:52 Amorphous Sediment Not Reportable 04/17/24 16:52 Urine Bacteria 1+ /hpf (NONE) H 04/17/24 16:52 Urine Mucus 2+ /hpf 04/17/24 16:52 Urine Opiates Screen Negative ng/mL (Negative) 04/17/24 16:52 Ur Barbiturates Screen Negative ng/mL (Negative) 04/17/24 16:52 Ur Phencyclidine Scrn Negative ng/mL (Negative) 04/17/24 16:52 Ur Amphetamines Screen Positive ng/mL (Negative) H 04/17/24 16:52 U Benzodiazepines Scrn Negative ng/mL (Negative) 04/17/24 16:52 Urine Cocaine Screen Negative ng/mL (Negative) 04/17/24 16:52 U Marijuana (THC) Screen Negative ng/mL (Negative) 04/17/24 16:52 All radiology interpretation(s) finalized by discharge Discharge Plan Discharge Patient Disposition: Placed in Observation Clinical Impression: Rhabdomyolysis, Dehydration Discharge Diet: Usual diet Discharge Activity: Increase activity as tolerated Coding Level of Care Code ED [place] for Mika Arizmendi
[2024-04-17 17:16] LABS: Add Urine Culture? No; Bacteria Urine 1+ /hpf; Bilirubin Urine 1+ (Negative); Blood Urine Neg (Negative); Glucose Urine UA Norm (Normal); Ketones Urine 3+ (Negative); Leukocyte Esterase Urine Trace (Negative); Mucus Urine 2+ /hpf; Nitrate Urine Negative (Negative); Protein Urine Trace (Negative); Specific Gravity, Urine 1.025 (1.005-1.030); Squamous Epithelial Cell Urine 0-4 /hpf (0-5); Urine Appearance Clear (CLEAR); Urine Color Dark Yellow (Yellow); Urobilinogen Urine 1 mg/dL (Negative); WBC Urine 0-4 /hpf (0-5); pH Urine 6 (5-7)
[2024-04-17 17:19] LABS: Amphetamines Screen Urine Positive (Negative); Barbiturates Screen Urine Negative (Negative); Benzodiazepines Screen Urine Negative (Negative); Cocaine Screen Urine Negative (Negative); Opiate Screen Urine Negative (Negative); PCP Screen Urine Negative (Negative); THC Screen Urine Negative (Negative)
[2024-04-17 17:21] LABS: Creatine Phosphokinase 3848 U/L (26-192)
[2024-04-17] MEDS: sodium chloride 0.9% 1,000 ML 999 ML IV (18:06)
--- NOTE | 2024-04-17 20:09 | P.HP_ITS ---
Providers/Chief Complaint 2 Admitting Physician: Jez Cueto MD Primary Care Provider: Nathaniel Howell MD Chief Complaint: leg pain/headache History of Present Illness Alicia Pierce is a 48 year old female with degenerative disc disease of the back, history of hysterectomy, history of hypoestrogenism, current smoker, who presents [facility] for low back pain left sacral notch pain, radiating down her leg, with severe intractable pain. Patient tells me that she has been having low back pain, right sided, radiating down the right leg, she tells me that severe and electrical sensation, no recent injuries, recent falls no car accidents, she has pain with ambulation, currently in severe pain, at rest, she is lying on her side keeping the pressure off the area, with a pillow between both her legs due to severe pain, denies any fevers, no chills, no cough. She tells me that she for the last 24 hours was sleeping outside her house in a tent due to some issues with family members, she was sleeping on air mattress, but since then the pain has become much more severe, she does report she has been drinking less water, denies alcohol use, denies any drug use although her urine was positive for methamphetamines, currently complaining of severe pain in her right leg/buttocks,/lower back, radiating down to her ankle Review of Systems 2 Card: Denies: chest pain Resp: Denies: dyspnea GI: Denies: abdominal pain : Denies: flank pain Medications/Allergies Home Medications Medication Instructions Recorded Confirmed Last Taken Type estradiol 1 mg tablet 1 mg PO DAILY 3 weeks #90 tabs 10/31/21 Unknown Rx azithromycin 250 mg tablet See Rx Instructions PO .COMPLEX #6 01/01/22 Unknown Rx tabs alprazolam 0.5 mg tablet 0.5 mg PO BID PRN anxiety #60 tabs 05/31/22 Unknown Rx oxycodone 10 mg tablet 10 mg PO DAILY PRN pain 15 days 12/04/22 Unknown Rx #15 tabs diclofenac sodium 75 mg 75 mg PO Q12H PRN pain #20 tabs 02/11/23 Unknown Rx tablet,delayed release amoxicillin 875 mg-potassium 1 tab PO BID #14 tabs 02/14/23 Unknown Rx clavulanate 125 mg tablet hydrocodone 5 mg-acetaminophen 325 1 tab PO Q6H PRN pain (scale score 02/14/23 Unknown Rx mg tablet 7-10) #7 tabs naproxen 500 mg tablet (Naprosyn) 500 mg PO BID PRN pain #20 tabs 10/08/23 Unknown Rx Allergies Allergy/AdvReac Type Severity Reaction Status Date / Time codeine AdvReac RASH, Verified 04/17/24 16:15 VOMITING AND NAUSEA PFSH Acute 2 PFSH: Medical History Hypoestrogenism Encounter for long-term opiate analgesic use Tobacco abuse disorder Lumbar disc herniation with radiculopathy Degenerative disc disease, lumbar Surgical History History of hysterectomy History of cholecystectomy H/O tubal ligation Family History Other CAD (coronary artery disease) Cancer Social History Smoking and tobacco/nicotine status: current every day tobacco/nicotine user cigarettes Packs smoked per day: 1 Alcohol intake: never Substance/Drug Use: never Vitals/I&O/Wt Last Vital Signs Temp 98.1 F 04/17/24 16:11 Pulse 95 04/17/24 16:11 Resp 17 04/17/24 16:11 BP 133/61 04/17/24 16:11 Pulse Ox 96 04/17/24 16:11 O2 Del Method Room Air 04/17/24 16:11 Weight last 48 hrs Weight 77.111 kg Physical Exam 2 Const: COMMON NORMALS: no acute distress and patient oriented x3 HENMT: COMMON NORMALS: normocephalic HEAD & SCALP: normocephalic Eye: COMMON NORMALS: Equal, round and reactive pupils present and EOMs intact bilaterally Neck/C-Spine: COMMON NORMALS: no JVD Lymph: LYMPHATIC: no lymphadenopathy noted Resp: COMMON NORMALS: normal respiratory effort, No retractions, No use of accessory muscles and clear to auscultation bilaterally AUSCULTATION: clear to auscultation bilaterally Cardio: COMMON NORMALS: no JVD, regular rate, regular rhythm, S1 normal heart sound present and S2 normal heart sound present RATE: regular rate RHYTHM: regular rhythm HEART SOUNDS: S1 normal heart sound present and S2 normal heart sound present GI: COMMON NORMALS: Normal to inspection, nondistended, normoactive bowel sounds present, Soft to palpation and non-tender Back/Pelvis: THORACIC SPINE/UPPER BACK: Yes normal to inspection, Yes thoracic ROM normal, Yes pain with ROM, No thoracic spinal tenderness, Yes paraspinal muscle tenderness and Yes paraspinal muscle spasm OTHER: Exquisite right paraspinal muscle spasm, lower lumbar spine, with exquisite right sciatic notch tenderness, eliciting severe pain once palpated Extremity: COMMON NORMALS: no pedal edema Neuro: COMMON NORMALS: patient oriented x3, CN's II-XII intact bilaterally, moves all extremities and no focal motor deficits Psych: COMMON NORMALS: mental status grossly normal Data 04/17/24 16:41 04/17/24 16:41 A&P Assessment and plan (1) Right-sided low back pain with sciatica: (2) Rhabdomyolysis: (3) Dehydration: (4) Transaminitis: (5) UTI (urinary tract infection): (6) Methamphetamine abuse: Plan UTI ? Rocephin Rhabdomyolysis ? IV fluids Dehydration ? IV fluids Right-sided sciatica with acute low back pain ? CT pelvis, with CT lumbar spine ? Decadron 6 mg IV push every 24 hours ? Continue morphine Will consider NSAIDs based on clinical progress Methamphetamine abuse, Urine positive for methamphetamines, patient denies any methamphetamine use Transaminitis, acute hep panel, HIV Patient is DNR/DNI, she does not want to have any aggressive interventions, her fianc? was at bedside during this conversation ? Lovenox for DVT prophylaxis Attestations 2 Medical Necessity Statement*: Patient requires hospitalization, outpatient observation, for dehydration, rhabdomyolysis, UTI, right-sided sciatica, Diagnoses Right-sided low back pain with sciatica M54.41 Rhabdomyolysis M62.82 Dehydration E86.0 Transaminitis R74.01 UTI (urinary tract infection) N39.0 Methamphetamine abuse F15.10
[2024-04-17 20:23] VITALS: BP 124/70; PULSE 94; RESP 17; TEMP 36.9; O2SAT 98
--- NOTE | 2024-04-17 20:23 | CTR_ITS ---
PROCEDURE INFORMATION: Exam: CT Pelvis Without Contrast; Skeletal Exam date and time: 04/18/2024 12:11 AM Age: 48 years old Clinical indication: Other: Sciatic pain; Prior surgery; Surgery date: 6+ months; Surgery type: Hysterectomy. Tubal. Patient HX: C/O low back pain with radiation down lle. ; Additional info: Left sciatica TECHNIQUE: Imaging protocol: Computed tomography of the pelvis without contrast. Exam focused on the skeleton. Radiation optimization: All CT scans at this facility use at least one of these dose optimization techniques: automated exposure control; mA and/or kV adjustment per patient size (includes targeted exams where dose is matched to clinical indication); or iterative reconstruction. COMPARISON: CT kidney stone [id number] 10/26/2017 9:17 PM RADIATION DOSE METRICS: Total DLP (mGy-cm): 421.25 FINDINGS: Bones/joints: Unremarkable. No acute fracture. No dislocation. See same-day lumbar spine CT. Soft tissues: The colon is rather fecal filled. Mild sigmoid diverticulosis. Absent uterus. CT/CT [place] [facility] [place] [id number] IMPRESSION: No acute findings.
--- NOTE | 2024-04-17 20:23 | CTR_ITS ---
PROCEDURE INFORMATION: Exam: CT Lumbar Spine Without Contrast Exam date and time: 04/18/2024 12:09 AM Age: 48 years old Clinical indication: Low back pain and sciatica; Left; Prior surgery; Surgery date: 6+ months; Surgery type: Gb. Hysterectomy. Tubal. Patient HX: C/O low back pain with radiation down lle. TECHNIQUE: Imaging protocol: Computed tomography of the lumbar spine without contrast. Radiation optimization: All CT scans at this facility use at least one of these dose optimization techniques: automated exposure control; mA and/or kV adjustment per patient size (includes targeted exams where dose is matched to clinical indication); or iterative reconstruction. COMPARISON: MR lumbar spine wo con* [id number] 12/21/2018 11:05 AM RADIATION DOSE METRICS: Total DLP (mGy-cm): 701.86 FINDINGS: Bones/joints: No acute fracture. No acute subluxation. [id number] lower lumbar facet arthropathy. Moderate L3-S1 broad-based disc bulges or disc osteophyte complexes cause [id number] mass effect. Gallbladder and bile ducts: Absent gallbladder. Vasculature: Advanced diffuse vascular calcification noted. Soft tissues: Unremarkable. CT/CT lumbar spine wo con* [id number] IMPRESSION: 1. No acute fracture or acute subluxation. 2. [id number] lower lumbar spondylosis with moderate spinal stenosis, most pronounced at L4-L5. Cannot exclude left L4-L5 lateral disc herniation. If pain persists, an MRI should be considered.
[2024-04-17 20:29] LABS: Lactic Sepsis W/Reflex 0.8 mmol/L (0.5-2.2)
[2024-04-17 20:32] VITALS: BMI 29.2
[2024-04-17 20:39] LABS: Procalcitonin 0.13 ng/mL (0-0.5)
[2024-04-17 20:54] VITALS: RESP 17; O2SAT 94
[2024-04-17] MEDS: morphine 4 mg/mL SDV 1 mL IVP (20:54)
[2024-04-17] MEDS: pantoprazole 40 mg SDV IVP (21:01)
[2024-04-17] MEDS: ondansetron 2 mg/ML SDV 2 mL 4 MG IVP (21:01)
[2024-04-17] MEDS: enoxaparin 40 mg/0.4 mL Syringe SUBCUT (21:12)
[2024-04-17] MEDS: cefTRIAXone 1,000 MG in sodium chloride 0.9% (plus) 50 ML 100 MG IV (21:12)
[2024-04-17] MEDS: sodium chloride 0.9% 1,000 ML 125 ML IV (21:13)
[2024-04-17 22:51] VITALS: O2SAT 95
[2024-04-17 23:09] LABS: Erythrocyte Sedimentation Rate 4 mm/hr (0-15)
[2024-04-17 23:29] LABS: C Reactive Protein 10.9 mg/L (0.0-4.9); Chol HDL Ratio 2.53 mg/dL (0.0-4.40); Cholesterol 134 mg/dL (0-200); HDL Cholesterol 53 mg/dL (60-100); LDL Cholesterol Calculated 68 mg/dL (50-129); LDL HDL Ratio 1.28 RATIO (0.00-3.22); Triglycerides 63 mg/dL (0-150)
[2024-04-17 23:33] LABS: Estmated Average Glucose 91; Hemoglobin A1C 4.8 % (4.0-6.0)
[2024-04-18] VITALS (13 sets, daily range): BP systolic 108–140; BP diastolic 54–73; PULSE 74–91; RESP 16–84; TEMP 36.5–36.8; O2SAT 93–97
[2024-04-18 00:15] LABS: HIV 1 & 2 Antibody Non-Reactive (Non-Reactiv); HIV 1 & 2 Antigen Non-Reactive (Non-Reactiv)
[2024-04-18 00:20] LABS: Hepatitis A Antibody IgM Non-Reactive (Nonreactive); Hepatitis B Core IgM Non-Reactive (Nonreactive); Hepatitis B Surface Antigen Non-Reactive (Nonreactive); Hepatitis C Virus Antibody Non-Reactive (Nonreactive)
[2024-04-18] MEDS: ALPRAZolam 0.5 mg Tablet PO (02:02)
[2024-04-18] MEDS: morphine 4 mg/mL SDV 1 mL 2 MG IVP ×4 (02:02→22:28)
[2024-04-18 06:15] LABS: Basophils # 0.1 10^3/uL (0.0-0.1); Basophils % 0.6 %; Eosinophils # 0.2 10^3/uL (0.0-0.8); Eosinophils % 2.7 %; Hematocrit 37.4 % (36-47); Lymphocytes # 2.6 10^3/uL (0.8-4.8); Lymphocytes % 31.9 %; Mean Corpuscular HGB Conc 32.9 g/dL (30-55); Mean Corpuscular Hemoglobin 30.2 pg (27-33); Mean Corpuscular Volume 91.9 fl (85-98); Mean Platelet Volume 10.8 fL (7.4-10.4); Monocytes # 0.8 10^3/uL (0.2-0.9); Monocytes % 10.1 %; Neutrophils # 4.49 10^3/uL (1.8-7.7); Neutrophils % 54.3 %; Nucleated Red Blood Cells % 0 %; Platelet Count 181 10^3/cmm (157-399); Red Blood Count 4.07 10^6/uL (3.85-5.65); White Blood Count 8.25 10^3/uL (3.29-11.43)
[2024-04-18 06:38] LABS: Alanine Aminotransferase 80 U/L (0-33); Albumin Level 3.8 g/dL (3.5-5.2); Alkaline Phosphatase 75 U/L (35-105); Anion Gap 12.9 (5-19); Aspartate Amino Transferase 160 U/L (0-32); Blood Urea Nitrogen 19 mg/dL (6-20); Calcium 8.1 mg/dL (8.5-10.5); Carbon Dioxide 26 mmol/L (22-29); Chloride 110 mmol/L (98-107); Globulin 2.2 g/dL (1.3-4.6); Glomerular Filtration Rate 76.6 mL/min (90-130); Glucose 89 mg/dL (65-115); Magnesium 1.9 mg/dL (1.7-2.3); Osmolality Calculated 302 mOsm/kg (285-295); Phosphorus 3.9 mg/dL (2.5-4.5); Potassium 3.9 mmol/L (3.5-5.1); Sodium 145 mmol/L (136-145); Total Bilirubin 0.3 mg/dL (0.15-1.2)
[2024-04-18] MEDS: sodium chloride 0.9% 1,000 ML 125 ML IV ×2 (09:47→18:38)
[2024-04-18 12:00] LABS: Creatine Phosphokinase 6604 U/L (26-192)
--- NOTE | 2024-04-18 14:18 | P.PN_ITS ---
Subjective 2 Subjective: Admitted overnight. No acute events overnight. Patient sitting comfortably in bed having her breakfast. Still complaining of mild pain in the calf muscles but states a lot better. Denies any new complaints. States feeling a lot better than before. Has remained hemodynamically stable and afebrile. Vitals/I&O/Wt Last Vital Signs Temp 98.0 F 04/18/24 11:36 Pulse 84 04/18/24 11:36 Resp 22 H 04/18/24 11:36 BP 114/54 04/18/24 11:36 Pulse Ox 96 04/18/24 11:36 O2 Del Method Room Air 04/18/24 11:36 04/17/24 04/18/24 04/18/24 22:59 06:59 14:59 Intake Total 1050 / 1050 1000 / 2050 480 / 480 Balance 1050 / 1050 1000 / 2050 480 / 480 Weight last 48 hrs Weight 92.306 kg Weight 77.111 kg Weight 77.111 kg Physical Exam 2 Const: COMMON NORMALS: no acute distress and patient oriented x3 HENMT: COMMON NORMALS: normocephalic HEAD & SCALP: normocephalic Eye: COMMON NORMALS: Equal, round and reactive pupils present and EOMs intact bilaterally PUPIL: Yes Equal, round and reactive pupils present Neck/C-Spine: COMMON NORMALS: no JVD Lymph: LYMPHATIC: no lymphadenopathy noted Resp: COMMON NORMALS: normal respiratory effort, No retractions, No use of accessory muscles and clear to auscultation bilaterally AUSCULTATION: clear to auscultation bilaterally Cardio: COMMON NORMALS: no JVD, regular rate, regular rhythm, S1 normal heart sound present and S2 normal heart sound present RATE: regular rate RHYTHM: regular rhythm HEART SOUNDS: S1 normal heart sound present and S2 normal heart sound present GI: COMMON NORMALS: Normal to inspection, nondistended, normoactive bowel sounds present, Soft to palpation and non-tender PALPATION: Yes Soft to palpation Back/Pelvis: THORACIC SPINE/UPPER BACK: Yes normal to inspection, Yes thoracic ROM normal, Yes pain with ROM, No thoracic spinal tenderness, Yes paraspinal muscle tenderness and Yes paraspinal muscle spasm OTHER: Exquisite right paraspinal muscle spasm, lower lumbar spine, with exquisite right sciatic notch tenderness, eliciting severe pain once palpated Extremity: COMMON NORMALS: no pedal edema Neuro: COMMON NORMALS: patient oriented x3, CN's II-XII intact bilaterally, moves all extremities and no focal motor deficits Psych: COMMON NORMALS: mental status grossly normal Data 04/18/24 05:50 04/18/24 05:50 Micro: Microbiology 04/17/24 23:30 Blood Culture - Preliminary Blood SPECIMEN COLLECTED 04/17/24 23:33 Blood Culture - Preliminary Blood SPECIMEN COLLECTED A&P Assessment and plan (1) Right-sided low back pain with sciatica: (2) Rhabdomyolysis: (3) Dehydration: (4) Transaminitis: (5) UTI (urinary tract infection): (6) Methamphetamine abuse: Plan UTI: Follow-up cultures. Continue with empiric ceftriaxone for now. De-escalate as per culture results Rhabdomyolysis: Most likely in setting of dehydration, being out in the hot weather along with amphetamine use. Monitor CPK daily. Continue with normal saline at 125 cc/h. Repeat BMP in evening. Dehydration: As above. Right-sided sciatica with acute low back pain: Appreciate CT pelvis and lumbar spine results. Tramadol as needed for pain medication. May need to follow-up with orthopedic surgery as an outpatient. Physical therapy. Methamphetamine abuse: Appreciate urine drug screen. Patient denies meth use but states she does use meth occasionally. Continue with IV fluids. Monitor for withdrawal. Transaminitis: Hepatitis panel, HIV negative. Continue to monitor daily. Patient is DNR/DNI, she does not want to have any aggressive interventions, her fianc? was at bedside during this conversation Cardiac diet. Protonix for PUD prophylaxis Lovenox for DVT prophylaxis Attestations 2 Medical Necessity Statement*: Requires further hospitalization for management of worsening rhabdomyolysis while on IV fluids while she requires further hydration, monitoring of renal functions. Switch to inpatient. Diagnoses Right-sided low back pain with sciatica M54.41 Rhabdomyolysis M62.82 Dehydration E86.0 Transaminitis R74.01 UTI (urinary tract infection) N39.0 Methamphetamine abuse F15.10
[2024-04-18 16:36] LABS: Anion Gap 10.9 (5-19); Blood Urea Nitrogen 15 mg/dL (6-20); Calcium 8.5 mg/dL (8.5-10.5); Carbon Dioxide 25 mmol/L (22-29); Chloride 109 mmol/L (98-107); Creatinine Clr Calc Pharmacy 108.2114; Glomerular Filtration Rate 89.3 mL/min (90-130); Glucose 130 mg/dL (65-115); Osmolality Calculated 295 mOsm/kg (285-295); Potassium 3.9 mmol/L (3.5-5.1); Sodium 141 mmol/L (136-145)
[2024-04-18] MEDS: cefTRIAXone 1,000 MG in sodium chloride 0.9% (plus) 50 ML 100 MG IV (20:15)
[2024-04-18] MEDS: pantoprazole 40 mg SDV IVP (20:15)
[2024-04-18] MEDS: enoxaparin 40 mg/0.4 mL Syringe SUBCUT (20:16)
[2024-04-19] VITALS (9 sets, daily range): BP systolic 114–168; BP diastolic 61–82; PULSE 67–81; RESP 18–19; TEMP 36.3–36.9; O2SAT 95–96
[2024-04-19] MEDS: sodium chloride 0.9% 1,000 ML 125 ML IV (03:15)
[2024-04-19 07:04] LABS: Basophils # 0.1 10^3/uL (0.0-0.1); Basophils % 0.9 %; Eosinophils # 0.2 10^3/uL (0.0-0.8); Eosinophils % 3.4 %; Hematocrit 34.9 % (36-47); Lymphocytes # 1.9 10^3/uL (0.8-4.8); Mean Corpuscular HGB Conc 32.4 g/dL (30-55); Mean Corpuscular Hemoglobin 30.8 pg (27-33); Mean Corpuscular Volume 95.1 fl (85-98); Mean Platelet Volume 11.7 fL (7.4-10.4); Monocytes # 0.6 10^3/uL (0.2-0.9); Neutrophils # 2.89 10^3/uL (1.8-7.7); Neutrophils % 51.3 %; Nucleated Red Blood Cells % 0 %; Platelet Count 155 10^3/cmm (157-399); Red Blood Count 3.67 10^6/uL (3.85-5.65); Red Cell Distribution Width 12.3 % (12.1-15.1); White Blood Count 5.62 10^3/uL (3.29-11.43)
[2024-04-19 07:22] LABS: Alanine Aminotransferase 88 U/L (0-33); Albumin Level 3.3 g/dL (3.5-5.2); Alkaline Phosphatase 66 U/L (35-105); Anion Gap 10.8 (5-19); Aspartate Amino Transferase 130 U/L (0-32); Blood Urea Nitrogen 15 mg/dL (6-20); Calcium 8.2 mg/dL (8.5-10.5); Carbon Dioxide 24 mmol/L (22-29); Chloride 111 mmol/L (98-107); Creatinine Clr Calc Pharmacy 110.4457; Glomerular Filtration Rate 89.3 mL/min (90-130); Glucose 94 mg/dL (65-115); Osmolality Calculated 295 mOsm/kg (285-295); Potassium 3.8 mmol/L (3.5-5.1); Sodium 142 mmol/L (136-145); Total Bilirubin 0.2 mg/dL (0.15-1.2); Total Protein 5.3 g/dL (6.6-8.7)
[2024-04-19] MEDS: morphine 4 mg/mL SDV 1 mL 2 MG IVP ×2 (07:45→12:03)
--- NOTE | 2024-04-19 09:53 | PC.CHAP ---
Pastoral Care Encounter/Spiritual Assessment Type of Contact [] Declined metal buffer visit [] Patient/Family/Request visit [] Outpatient visit [] Follow-up visit [] Physician referral [] Code/Alert [x] Routine visit [] Staff referral [] Actively dying [] Patient sleeping [] Family support [] [] Out of room [] Palliative care [] [] Receiving care in room [] Pre-surgical visit [] Trauma [] Long length of stay [] ICU visit [] Other: Relational/Emotional Strength [] Patient feels connected with others/family/visitors/staff [] Distress [] Loneliness/isolation [] Abandonment Spirituality of Patient [x] Person of Edith [] Attends Zoroastrian of their Edith [x] Believes in Prayer [] Reads Bible or Druze materials [] There are Spiritual issues to be addressed Practice Coordinator Interventions [x] Prayer [x] Active listening [] Non-anxious presence [] Spiritual/emotional support [] Crisis/trauma care [] Spiritual counseling [] Bereavement support [] Provided bereavement packet [x] Provided Bible/devotional materials [] Provided toy/stuffed animal, coloring book to patient or family member [] Provided Communion [] Anointing/[place] [] Salvation [x] Completed spiritual assessment [] Other: Impact on Illness or Injury [] Angry [] Fearful [] Anxious [] Often cries [] Exhaustion [] Unable to work [] Unable to attend methodist [] Unable to walk/stand [] Unable to read [] Unable to drive [] Unable to eat/drink [] Unable to sleep [] Unable to be with family [] Patient intubated [] Other: Summary Time spent with patient 5 min
[2024-04-19] MEDS: ALPRAZolam 0.5 mg Tablet PO (11:29)
[2024-04-19 15:47] LABS: Creatine Phosphokinase 4728 U/L (26-192)
--- NOTE | 2024-04-19 16:27 | PM.DCS ---
Discharge Providers Date of Admission: 04/18/24 14:21 Date of Discharge: April 19, 2024 Attending Provider at Admission: Jez Cueto MD Attending Provider at Discharge: Merlyn Feliciano MD Primary Care Provider: Nathaniel Howell MD Diagnoses at Discharge Discharge Diagnosis (1) Right-sided low back pain with sciatica: Status: Acute (2) Rhabdomyolysis: Status: Acute (3) Dehydration: Status: Acute (4) Transaminitis: Status: Acute (5) UTI (urinary tract infection): Status: Acute (6) Methamphetamine abuse: Status: Acute Reason for Visit Reason for Visit: leg pain/headache Hospital Course Hospital Course 48 year old female with degenerative disc disease of the back, history of hysterectomy, history of hypoestrogenism, current smoker, substance abuse who presented to the emergency room with generalized aches and pains affecting all extremities. Initially she complained of low back pain radiating down the right leg. She had been sleeping outside in a tent recently due to issues with family members. She reported ongoing meth use. He underwent CT of the lumbar spine which was negative for any acute fracture or subluxation. There was mild to moderate lumbar spondylosis with moderate spinal stenosis most pronounced at L4-L5. Patient has previously been noted to have degenerative changes involving the lumbar spine and x-rays dating back to 2020. Pelvic CT on this admission was without any acute findings. Patient had evidence of rhabdomyolysis with CK at 6000. She received IV hydration during the course of her admission and CK was trending down to 4000 at the time of discharge. Counseled patient to remain hydrated, counselled to find appropriate housing (she declined placement at a longterm and wishes to return to her current living arrangement with her significant other), monitor for any falling urine output. Currently her kidney function remained stable. She received IV morphine during the course of her admission for pain management. This has been transitioned to oral Percocet 5/325 every 8 hours as needed. Encouraged to keep follow-up with primary care provider within 7 to 10 days Physical Exam Narrative: General: No acute distress, AO x3 HEENT: PERRLA, pupils bilaterally equal and reactive, pallors not present Chest: Normal vesicular breath sounds, no added sounds, equal good air entry bilaterally CVS: S1-S2 regular, no murmurs, no tachycardia, no gallops, no rubs Abdomen: Soft, nontender, no organomegaly, bowel sounds present Neuro: No focal deficits, no facial deformity, AO x3, power 5/5 in all limbs Discharge Data Studies Completed and Pending Completed Studies During Hospitalization Category Date Time Status CT lumbar spine wo con* [id number] Routine Cat Scan 04/17/24 20:[address] pelvis wo con [id number] Routine Cat Scan 04/17/24 20:23 Completed US venous duplex lower extremity RT [CV venous duplex Ultrasound 04/17/24 17:02 [place] [id number]] Stat Pending at discharge Category Date Time Status Blood Culture Stat Lab 04/17/24 23:30 Results Urine Culture Stat Lab 04/17/24 20:18 Ordered Radiology Impressions Venous Duplex 04/17/24 17:02 IMPRESSION: No sonographic evidence of deep vein thrombosis. Lumbar Spine CT 04/17/24 20:23 IMPRESSION: 1. No acute fracture or acute subluxation. 2. [id number] lower lumbar spondylosis with moderate spinal stenosis, most pronounced at L4-L5. Cannot exclude left L4-L5 lateral disc herniation. If pain persists, an MRI should be considered. Pelvis CT 04/17/24 20:23 IMPRESSION: No acute findings. Laboratory Results WBC 5.62 10^3/uL (3.29-11.43) 04/19/24 06:28 RBC 3.67 10^6/uL (3.85-5.65) L 04/19/24 06:28 Hgb 11.30 g/dL (11.27-16.99) 04/19/24 06:28 Hct 34.9 % (36-47) L 04/19/24 06:28 MCV 95.1 fl (85-98) 04/19/24 06:28 MCH 30.8 pg (27-33) 04/19/24 06:28 MCHC 32.4 g/dL (30-55) 04/19/24 06:28 RDW 12.3 % (12.1-15.1) 04/19/24 06:28 Plt Count 155 10^3/cmm (157-399) L 04/19/24 06:28 MPV 11.7 fL (7.4-10.4) H 04/19/24 06:28 Neut % (Auto) 51.3 % 04/19/24 06:28 Lymph % (Auto) 34.0 % 04/19/24 06:28 Pierce % (Auto) 10.0 % 04/19/24 06:28 Eos % (Auto) 3.4 % 04/19/24 06:28 Baso % (Auto) 0.9 % 04/19/24 06:28 Neut # (Auto) 2.89 10^3/uL (1.8-7.7) 04/19/24 06:28 Lymph # (Auto) 1.9 10^3/uL (0.8-4.8) 04/19/24 06:28 Pierce # (Auto) 0.6 10^3/uL (0.2-0.9) 04/19/24 06:28 Eos # (Auto) 0.2 10^3/uL (0.0-0.8) 04/19/24 06:28 Baso # (Auto) 0.1 10^3/uL (0.0-0.1) 04/19/24 06:28 Nucleated RBC % (auto) 0 % 04/19/24 06:28 Nucleated RBCs # 0.0 /100WBC 04/19/24 06:28 ESR 4 mm/hr (0-15) 04/17/24 16:41 Sodium 142 mmol/L (136-145) 04/19/24 06:28 Potassium 3.8 mmol/L (3.5-5.1) 04/19/24 06:28 Chloride 111 mmol/L (98-107) H 04/19/24 06:28 Carbon Dioxide 24 mmol/L (22-29) 04/19/24 06:28 Anion Gap 10.8 (5-19) 04/19/24 06:28 BUN 15 mg/dL (6-20) 04/19/24 06:28 Creatinine 0.7 mg/dL (0.5-0.9) 04/19/24 06:28 GFR Calculation 89.3 mL/min (90-130) L 04/19/24 06:28 Glucose 94 mg/dL (65-115) 04/19/24 06:28 Estimat Average Glucose 91 04/17/24 16:41 Hemoglobin A1c 4.8 % (4.0-6.0) 04/17/24 16:41 Calculated Osmolality 295 mOsm/kg (285-295) 04/19/24 06:28 Lactic Acid 0.8 mmol/L (0.5-2.2) 04/17/24 16:41 Calcium 8.2 mg/dL (8.5-10.5) L 04/19/24 06:28 Phosphorus 3.9 mg/dL (2.5-4.5) 04/18/24 05:50 Magnesium 1.9 mg/dL (1.7-2.3) 04/18/24 05:50 Total Bilirubin 0.2 mg/dL (0.15-1.2) 04/19/24 06:28 AST 130 U/L (0-32) H 04/19/24 06:28 ALT 88 U/L (0-33) H 04/19/24 06:28 Alkaline Phosphatase 66 U/L (35-105) 04/19/24 06:28 Creatine Kinase 4728 U/L (26-192) H* 04/19/24 06:28 C-Reactive Protein 10.5 mg/L (0.0-4.9) H 04/17/24 16:41 C-Reactive Protein 10.9 mg/L (0.0-4.9) H 04/17/24 16:41 Total Protein 5.3 g/dL (6.6-8.7) L 04/19/24 06:28 Albumin 3.3 g/dL (3.5-5.2) L 04/19/24 06:28 Globulin 2.0 g/dL (1.3-4.6) 04/19/24 06:28 Triglycerides 63 mg/dL (0-150) 04/17/24 16:41 Cholesterol 134 mg/dL (0-200) 04/17/24 16:41 LDL Cholesterol, Calc 68 mg/dL (50-129) 04/17/24 16:41 HDL Cholesterol 53 mg/dL (60-100) L 04/17/24 16:41 LDL/HDL Ratio 1.28 RATIO (0.00-3.22) 04/17/24 16:41 Cholesterol/HDL Ratio 2.53 mg/dL (0.0-4.40) 04/17/24 16:41 Procalcitonin 0.13 ng/mL (0-0.5) 04/17/24 16:41 TSH 2.40 uIU/mL (0.27-4.20) 04/17/24 16:41 Urine Color Dark yellow (Yellow) 04/17/24 16:52 Urine Appearance Clear (CLEAR) 04/17/24 16:52 Urine pH 6 (5-7) 04/17/24 16:52 Ur Specific Ponce 1.025 (1.005-1.030) 04/17/24 16:52 Urine Protein Trace (Negative) 04/17/24 16:52 Urine Glucose (UA) Norm (Normal) 04/17/24 16:52 Urine Ketones 3+ (Negative) H 04/17/24 16:52 Urine Blood Neg (Negative) 04/17/24 16:52 Urine Nitrate Negative (Negative) 04/17/24 16:52 Urine Bilirubin 1+ (Negative) H 04/17/24 16:52 Urine Urobilinogen 1 mg/dL (Negative) H 04/17/24 16:52 Ur Leukocyte Esterase Trace (Negative) H 04/17/24 16:52 Urine RBC None /hpf (0-2) 04/17/24 16:52 Urine WBC 0-4 /hpf (0-5) H 04/17/24 16:52 Ur Squamous Epith Cells 0-4 /hpf (0-5) H 04/17/24 16:52 Calcium Oxalate Crystal 5-10 /hpf H 04/17/24 16:52 Amorphous Sediment Not Reportable 04/17/24 16:52 Urine Bacteria 1+ /hpf (NONE) H 04/17/24 16:52 Urine Mucus 2+ /hpf 04/17/24 16:52 Urine Opiates Screen Negative ng/mL (Negative) 04/17/24 16:52 Ur Barbiturates Screen Negative ng/mL (Negative) 04/17/24 16:52 Ur Phencyclidine Scrn Negative ng/mL (Negative) 04/17/24 16:52 Ur Amphetamines Screen Positive ng/mL (Negative) H 04/17/24 16:52 U Benzodiazepines Scrn Negative ng/mL (Negative) 04/17/24 16:52 Urine Cocaine Screen Negative ng/mL (Negative) 04/17/24 16:52 U Marijuana (THC) Screen Negative ng/mL (Negative) 04/17/24 16:52 Hepatitis A IgM Ab Non-reactive (Nonreactive) 04/17/24 23:30 Hep Bs Antigen Non-reactive (Nonreactive) 04/17/24 23:30 Hep B Core IgM Ab Non-reactive (Nonreactive) 04/17/24 23:30 Hepatitis C Antibody Non-reactive (Nonreactive) 04/17/24 23:30 HIV 1&2 Ab & HIV 1 Ag Non-reactive (Non-Reactiv) 04/17/24 23:30 HIV 1&2 Antibody Non-reactive (Non-Reactiv) 04/17/24 23:30 Vitals Last Vital Signs Temp 97.4 F L 04/19/24 11:45 Pulse 81 04/19/24 12:00 Resp 18 04/19/24 12:03 BP 168/72 04/19/24 11:45 Pulse Ox 96 04/19/24 12:03 O2 Del Method Room Air 04/19/24 11:45 Discharge Plan Discharge Patient Disposition: Home Condition: Stable Prescriptions: New alprazolam 0.5 mg Tablet 0.5 mg PO BID PRN (Reason: anxiety) 5 Days Qty: 10 0RF Percocet 5-325 mg tablet 1 tab PO Q8H PRN (Reason: pain) 5 Days Qty: 15 0RF Discharge Orders: Discharge Order (Routine); Ordered 04/19/24 Ordered By: Merlyn Feliciano Referrals: Nathaniel Howell MD [Primary Care Provider] - 04/21/24 9:00 am () Discharge Diet: Usual diet Discharge Activity: Increase activity as tolerated Patient Instructions: Oxycodone/Acetaminophen (By mouth), Alprazolam (By mouth) (Xanax, Xanax XR, alprazolam Intensol, Gabazolamin), Urinary Tract Infection in Women (DC), Opioid Safety Discharge Attestations Time Spent in Discharge Care*: greater than 30 min Quality Metrics Clinical Quality Measures [ No reported AMI, CVA or VTE this stay] Coding Level of Care Code Acute Code for Chg Fwd Diagnoses Right-sided low back pain with sciatica M54.41 Rhabdomyolysis M62.82 Dehydration E86.0 Transaminitis R74.01 UTI (urinary tract infection) N39.0 Methamphetamine abuse F15.10
--- NOTE | 2024-04-19 17:28 | PC.NURSE ---
Discussed discharge with patient and new medications. Patient verbalized understanding.
== END 2024-04-19 15:53 | disposition home or self-care (01) | DRG 558 ==
LOC: ER 17:50 → MEDSURG 19:21
PROVIDERS: Family Medicine; Admitting Provider Student in an Organized Health Care Education/Training Program; Emergency Provider Emergency Medicine; PCP Family Medicine; Visit Provider Student in an Organized Health Care Education/Training Program
DX: M62.82 Rhabdomyolysis (principal); N39.0 Urinary tract infection, site not specified; E86.0 Dehydration; R74.01 Elevation of levels of liver transaminase levels; F15.10 Other stimulant abuse, uncomplicated; R82.5 Elevated urine levels of drugs, medicaments and biological substances; Z66 Do not resuscitate; M54.41 Lumbago with sciatica, right side; M51.36 Other intervertebral disc degeneration, lumbar region; M48.061 Spinal stenosis, lumbar region without neurogenic claudication
CPT/HCPCS: 36415; 72131; 72192; 80048; 80053; 80061; 80074; 80306; 81001; 82550; 83036; 83605; 83735; 84100; 84145; 84443; 85025; 85651; 86140; 87040; 87806; 93971; 94664; 96360; 96372; 99285; C9113; G0378; J0696; J1650; J2270; J2405; J7030

== ENCOUNTER 2024-10-30 14:31 | Emergency (ER) | payer BC, MEDICAID, SELFPAY ==
[2024-10-30 14:51] VITALS: BP 171/137; PULSE 88; RESP 18; TEMP 36.7; O2SAT 99
--- NOTE | 2024-10-30 16:22 | ED_ITS ---
Documented by User: Taj Rodas DO 11/02/24 18:47 HPI - Animal Bite General: Chief Complaint: Animal Bite Stated Complaint: dog bite rt ankle Time Seen by Provider: 10/30/24 16:17 History of Present Illness: 49-year-old female who presents to the e mergency room after being bitten by dog on her right ankle. Her last tetanus shot was 5 years ago she does have some lacerations on her ankle. The animal is up-to-date on his immunizations. Unfortunately for the patient she found her son yesterday and she has to leave within the next 30 minutes if she wishes to see him before the body is cremated. I do not believe we can adequately care for this injury within the next 30 minutes, by the same token it can be delayed a bit for her to go to allow her to view her son. Will bandage her foot and she when she returns we will address the lacerations that may need a few stitches. Patient understands this. She is not going to need tetanus or rabies vaccination at this point. So we will simply be a case of repairing laceration and giving her prescription for antibiotics Related Data Previous Rx's Medication Instructions Recorded amoxicillin 875 mg-potassium 1 tab PO BID #14 tabs 10/30/24 clavulanate 125 mg tablet Allergies Allergy/AdvReac Type Severity Reaction Status Date / Time codeine AdvReac RASH, Verified 10/30/24 14:[address] [facility] ED PFSH: Medical History Hypoestrogenism Encounter for long-term opiate analgesic use Tobacco abuse disorder Lumbar disc herniation with radiculopathy Degenerative disc disease, lumbar Surgical History History of hysterectomy History of cholecystectomy H/O tubal ligation Family History Other CAD (coronary artery disease) Cancer Social History Smoking and tobacco/nicotine status: current every day tobacco/nicotine user cigarettes Packs smoked per day: 1 Alcohol intake: never Substance/Drug Use: never Course Vital Signs: Vital signs: Vital Signs Temperature 98.1 F 11/30/24 14:51 Pulse Rate 83 10/30/24 18:37 Respiratory Rate 18 10/30/24 14:51 Blood Pressure 147/47 10/30/24 18:37 Pulse Oximetry 100 10/30/24 18:37 MDM - Animal Bite Medical Decision Making Care signed out to Dr. Covarrubias at change of shift. See final notes for diagnosis and disposition. 49-year-old patient checked out at shift change. She was pending suture repair of laceration to posterior right ankle. This was done without complication after extensive irrigation. She be placed on Augmentin for coverage given this is an animal bite. Other smaller lacerations/abrasions are not closed, given this is a bite. Localized wound cleansing with soap and water, dressing changes, close outpatient follow-up. Sutures out in 7 to 10 days. She was given 1 injection of Versed 3 mg for anxiolysis, and tolerated well. Discharge Plan Discharge Patient Disposition: Home Clinical Impression: Dog bite, Laceration of ankle Condition: Stable Prescriptions: New amoxicillin-pot clavulanate 875-125 mg tablet 1 tab PO BID Qty: 14 0RF Discharge Orders: Discharge ED (Routine); Ordered 10/30/24 Ordered By: Philip Covarrubias Referrals: Nathaniel Howell MD [Primary Care Provider] - 7-10 days Patient Instructions: Animal Bite (ED), Laceration (ED), Opioid Safety, Pain Management Activity Restrictions/Additional Instructions: Clean all wounds with soap and running water. Do not soak. Dressing changes as needed. Antibiotics as directed. Ice may help with swelling. Return for any problems such as increasing redness, swelling, drainage, despite antibiotics. Sutures should come out in 7 to 10 days. See your doctor for this. Coding Level of Care Code ED Wall Insulation Sprayer for Chg Fwd Documented by User: Philip Covarrubias DO 10/31/24 18:31 HPI - Animal Bite General: Chief Complaint: Animal Bite Stated Complaint: dog bite rt ankle Time Seen by Provider: 10/30/24 16:17 Related Data Previous Rx's Medication Instructions Recorded amoxicillin 875 mg-potassium 1 tab PO BID #14 tabs 10/30/24 clavulanate 125 mg tablet Allergies Allergy/AdvReac Type Severity Reaction Status Date / Time codeine AdvReac RASH, Verified 10/30/24 14:58 VOMITING AND NAUSEA PFSH ED PFSH: Medical History Hypoestrogenism Encounter for long-term opiate analgesic use Tobacco abuse disorder Lumbar disc herniation with radiculopathy Degenerative disc disease, lumbar Surgical History History of hysterectomy History of cholecystectomy H/O tubal ligation Family History Other CAD (coronary artery disease) Cancer Social History Smoking and tobacco/nicotine status: current every day tobacco/nicotine user cigarettes Packs smoked per day: 1 Alcohol intake: never Substance/Drug Use: never Procedures Laceration Laceration 1: Site: lower extremity Side (If applicable): right Size (cm): 4 Description: linear Depth: simple, single layer Local Anesthetic: lidocaine 1% and with epi Amount of anesthesia used (mL): 6 Pre-repair: wound explored, irrigated extensively and deep structures intact Skin layer closed with: other (prolene) Size (cm): 3-0 Number of sutures: 5 Technique: simple, interrupted Course Vital Signs: Vital signs: Vital Signs Temperature 98.1 F 10/30/24 14:51 Pulse Rate 83 10/30/24 18:37 Respiratory Rate 18 10/30/24 14:51 Blood Pressure 147/47 10/30/24 18:37 Pulse Oximetry 100 10/30/24 18:37 [facility] - Animal Bite Medical Decision Making 49-year-old patient checked out at shift change. She was pending suture repair of laceration to posterior right ankle. This was done without complication after extensive irrigation. She be placed on Augmentin for coverage given this is an animal bite. Other smaller lacerations/abrasions are not closed, given this is a bite. Localized wound cleansing with soap and water, dressing changes, close outpatient follow-up. Sutures out in 7 to 10 days. She was given 1 injection of Versed 3 mg for anxiolysis, and tolerated well. No radiology studies performed this visit Discharge Plan Discharge Patient Disposition: Home Clinical Impression: Dog bite, Laceration of ankle Condition: Stable Prescriptions: New amoxicillin-pot clavulanate 875-125 mg tablet 1 tab PO BID Qty: 14 0RF Discharge Orders: Discharge ED (Routine); Ordered 10/30/24 Ordered By: Philip Covarrubias Referrals: Nathaniel Howell MD [Primary Care Provider] - 7-10 days Patient Instructions: Animal Bite (ED), Laceration (ED), Opioid Safety, Pain Management Activity Restrictions/Additional Instructions: Clean all wounds with soap and running water. Do not soak. Dressing changes as needed. Antibiotics as directed. Ice may help with swelling. Return for any problems such as increasing redness, swelling, drainage, despite antibiotics. Sutures should come out in 7 to 10 days. See your doctor for this. Coding Level of Care Code ED Wall Insulation Sprayer for Mika Arzimendi
--- NOTE | 2024-10-30 16:29 | PC.NURSE ---
pt states she needed to leave to go to home. pt states she will return later. wound wrapped and pt left at approx 1630
[2024-10-30 17:54] VITALS: BP 159/99; PULSE 101; O2SAT 98
[2024-10-30] MEDS: midazolam 1 mg/mL INJ 2 mL 3 MG IM (18:20)
[2024-10-30] MEDS: lidocaine-epi 1% 20 mL INJ 10 ML INJECTION (18:24)
[2024-10-30 18:28] VITALS: BP 158/105; PULSE 93; O2SAT 100
[2024-10-30 18:37] VITALS: BP 147/47; PULSE 83; O2SAT 100
[2024-10-30] MEDS: amoxicillin-clav 875-125 mg Tablet 1 TAB PO (19:05)
[2024-10-30] MEDS: oxyCODONE-APAP 5-325 mg Tablet 2 TAB PO (19:06)
== END 2024-10-30 19:06 | disposition home or self-care (01) ==
PROVIDERS: Emergency Provider Emergency Medicine; PCP Family Medicine
DX: S91.011A Laceration without foreign body, right ankle, initial encounter (principal); W54.0XXA Bitten by dog, initial encounter
CPT/HCPCS: 12002; 96372; 99284; J2250